=== PATIENT | male | born 1955 | race African-American/Black ===

== ENCOUNTER 2020-08-06 03:57 | Emergency (ER) | payer OTHER ==
[~2020-08-06] VITALS: Ht 177.8 cm; Wt 94.3 kg
[~2020-08-06 03:57] MED LIST: DIABETA 5MG TABL5 MG PO; TOPROL XL50 MG PO
[2020-08-06] MEDS ORDERED: METFORMIN PO (04:09)
[2020-08-06] MEDS ORDERED: JANUVIA100 MG PO (04:10)
[2020-08-06] MEDS ORDERED: LISINOPRIL PO (04:10)
[2020-08-06] MEDS ORDERED: VIT C PO (04:11)
[2020-08-06] MEDS ORDERED: SUPER THERAVIT1 EACH PO (04:11)
[2020-08-06] MEDS ORDERED: CHILDREN'S ASPI81 M1 PO (04:11)
[2020-08-06] MEDS ORDERED: TYLENOL325 M1 PO (04:56)
[2020-08-06] MEDS ORDERED: AFRIN15 M1 NASAL (04:56)
[2020-08-06] MEDS ORDERED: AUGMENTIN 875-1 EACH PO (04:56)
[2020-08-06 05:20] VITALS: BP 125/84
[2020-08-06] MEDS ORDERED: AMOXICILLIN500 M1 PO (22:11)
== END 2020-08-06 05:20 | disposition home or self-care (01) ==
LOC: ER 03:57
DX: R04.0 Epistaxis (principal); I10 Essential (primary) hypertension; Z79.899 Other long term (current) drug therapy; Z79.82 Long term (current) use of aspirin

== ENCOUNTER 2020-08-06 21:24 | Emergency (ER) | payer OTHER ==
[~2020-08-06] VITALS: Ht 177.8 cm; Wt 94.3 kg
[~2020-08-06 21:24] MED LIST changes: +AFRIN15 M1 NASAL; +AUGMENTIN 875-1 EACH PO; +CHILDREN'S ASPI81 M1 PO; +JANUVIA100 MG PO; +LISINOPRIL PO; +METFORMIN PO; +SUPER THERAVIT1 EACH PO; +TYLENOL325 M1 PO; +VIT C PO
[2020-08-06 21:37] VITALS: BP 175/98
[2020-08-06] MEDS ORDERED: AMOXICILLIN500 M1 PO (22:11)
== END 2020-08-06 22:21 | disposition home or self-care (01) ==
LOC: ER 21:24
DX: J34.89 Other specified disorders of nose and nasal sinuses (principal); I10 Essential (primary) hypertension; E11.9 Type 2 diabetes mellitus without complications; Z79.82 Long term (current) use of aspirin; Z79.899 Other long term (current) drug therapy

== ENCOUNTER 2021-01-03 04:41 | Emergency (ER) | payer OTHER ==
[~2021-01-03] VITALS: Ht 177.8 cm; Wt 98.9 kg
[~2021-01-03 04:41] MED LIST changes: +AMOXICILLIN500 M1 PO
[2021-01-03 06:17] VITALS: BP 146/90
[2021-01-03] MEDS ORDERED: CEPHALEXIN500 MG PO (07:54)
== END 2021-01-03 06:18 | disposition home or self-care (01) ==
LOC: ER 04:41
DX: R04.0 Epistaxis (principal); I10 Essential (primary) hypertension; E11.9 Type 2 diabetes mellitus without complications; Z79.82 Long term (current) use of aspirin; Z79.899 Other long term (current) drug therapy

== ENCOUNTER 2021-01-03 06:37 | Emergency (ER) | payer OTHER ==
[~2021-01-03] VITALS: Ht 177.8 cm; Wt 98.9 kg
[2021-01-03] MEDS ORDERED: CEPHALEXIN500 MG PO (07:54)
[2021-01-03 08:13] VITALS: BP 143/92
== END 2021-01-03 08:14 | disposition home or self-care (01) ==
LOC: ER 06:37
DX: R04.0 Epistaxis (principal); I10 Essential (primary) hypertension; E11.9 Type 2 diabetes mellitus without complications; Z79.82 Long term (current) use of aspirin; Z79.899 Other long term (current) drug therapy